=== PATIENT | female | born 1940 | race Caucasian/White ===

== ENCOUNTER → 2017-11-25 | Outpatient (CLI) | payer MEDICARE, OTHER ==
[~2017-11-25] MED LIST: ASPI-516 CHEW; CYAN1TAB24 PO; LEVO100T5 PO; NORC5TAB PO; TRAM50TA PO
[2017-11-25 13:02] LABS: AUTOMATED NEUTROPHIL # 3.5 TH/MM3 (1.8-7.7); BASOPHIL % 0.3 % (0.0-2.0); EOSINOPHIL # 0.9 TH/MM3 (0-0.4); EOSINOPHIL % 11.2 % (0.0-4.0); HEMATOCRIT 38.6 % (35.0-46.0); HEMOGLOBIN 13.1 GM/DL (11.6-15.3); LYMPH % 35.6 % (9.0-44.0); LYMPHOCYTE # 2.8 TH/MM3 (1.0-4.8); MEAN CELL VOLUME 95.2 FL (80.0-100.0); MEAN CORPUSCULAR HEMOGLOBIN 32.3 PG (27.0-34.0); MEAN CORPUSCULAR HGB CONC 33.9 % (32.0-36.0); MEAN PLATELET VOLUME 7.7 FL (7.0-11.0); MONO % 8.7 % (0.0-8.0); MONOCYTE # 0.7 TH/MM3 (0-0.9); NEUT % 44.2 % (16.0-70.0); PLATELET COUNT 327 TH/MM3 (150-450); RED BLOOD COUNT 4.05 MIL/MM3 (4.00-5.30)
[2017-11-25 13:03] LABS: BILIRUBIN, URINE NEG (NEG); BLOOD, URINE NEG (NEG); GLUCOSE,URINE NEG (NEG); KETONE, URINE NEG (NEG); MUCUS URINE FEW /lpf (OCC); NITRITE,URINE NEG (NEG); SQUAMOUS EPITHELIAL CELL URINE <1 /hpf (0-5); URINE COLOR YELLOW (YELLW/STRAW); URINE LEUKOCYTE ESTERASE TRACE (NEG)
[2017-11-25 13:14] LABS: ALBUMIN 3.7 GM/DL (3.4-5.0); AST (GOT) 20 U/L (15-37); BICARBONATE 30.7 MEQ/L (21.0-32.0); BLOOD UREA NITROGEN 11 MG/DL (7-18); CALCIUM 9.6 MG/DL (8.5-10.1); CHLORIDE 102 MEQ/L (98-107); CREATININE 0.66 MG/DL (0.50-1.00); GLOMERULAR FILTRATION RATE 87 ML/MIN (>89); GLUCOSE,FASTING 78 MG/DL (74-99); SODIUM (NA) 137 MEQ/L (136-145)
[2017-11-25 13:17] LABS: ALKALINE PHOSPHATASE 98 U/L (45-117); ALT (GPT) 10 U/L (10-53); TOTAL BILIRUBIN ADULT 0.4 MG/DL (0.2-1.0); TOTAL PROTEIN 7.1 GM/DL (6.4-8.2)
--- NOTE | 2017-11-25 13:17 | RADRPT ---
EXAM DATE/TIME: 11/25/2017 13:07 [facility] COMPARISON: SPINE LUMBAR LATERAL ONLY, June 17, 2015, 8:43. INDICATIONS : Evaluate for pneumonia, pneumothorax or communicable disease. Pre op lumbar laminectomy. MEDICAL HISTORY : None. SURGICAL HISTORY : None. ENCOUNTER: Initial ACUITY: 1 day PAIN SCORE: 0/10 LOCATION: Bilateral chest FINDINGS: The heart is normal in size. The mediastinal contours are within normal limits. There are chronic interstitial changes throughout the pulmonary parenchyma. There is a 5 mm calcified granuloma at the left lung base. The visualized osseous structures are grossly intact. Incidental note is made of severe scoliosis of the lumbar spine CONCLUSION: 1. 5 mm calcified granuloma the left lung base. 2. Chronic interstitial changes within the pulmonary parenchyma. 3. No acute cardiopulmonary findings identified. Garett Arita MD on November 25, 2017 at 13:14 Board Certified Radiologist. This report was verified electronically.
[2017-11-25 13:25] LABS: PROTHROMBIN TIME - PATIENT 10.1 SEC (9.8-11.6)
--- NOTE | 2017-11-25 16:32 | EKG ---
Date Performed: 11/25/2017 Time Performed: 12:46:37 PTAGE: 77 years EKG: SINUS BRADYCARDIA LOW QRS VOLTAGE IN PRECORDIAL LEADS BORDERLINE ECG PREVIOUS TRACING : 06/11/2015 12.03 Compared to previous tracing, interpolated PVC is no longer evident. DOCTOR: Fredis Muñoz Interpretating Date/Time 11/25/2017 16:30:44
== END ==
LOC: CPRE 11:59
PROVIDERS: ATTEND Neurological Surgery
DX: Z01.810 Encounter for preprocedural cardiovascular examination (principal); Z01.812 Encounter for preprocedural laboratory examination; Z01.818 Encounter for other preprocedural examination; M43.16 Spondylolisthesis, lumbar region; M51.16 Intervertebral disc disorders with radiculopathy, lumbar region; M51.36 Other intervertebral disc degeneration, lumbar region; R94.31 Abnormal electrocardiogram [ECG] [EKG]; Z79.01 Long term (current) use of anticoagulants
CPT/HCPCS: 36415; 71046; 80053; 81001; 85025; 85610; 85730; 87640; 87641; 93005

== ENCOUNTER → 2017-11-29 | Day surgery (SDC) | payer MEDICARE, OTHER ==
--- NOTE | 2017-11-28 15:43 | MH ---
cc: Jared Huerta DATE OF ADMISSION: 11/29/2017 ADMITTING DIAGNOSIS: Herniated nucleus pulposus, lumbar spine. HISTORY OF PRESENT ILLNESS: This is a 77-year-old female who presented to our office for an evaluation of left-sided low back pain extending to the left buttocks and left lateral thigh since January 2017 and it progressively getting worse. She denies any paresthesias in her lower extremities. She has seen Dr. Jones and has had injections in her spine since her MRI scan which was done in 04/2017. She has had physical therapy approximately 1-2 years ago which did not give her any lasting relief. She denies any weakness in the lower extremities. She denies any bowel or bladder incontinence. Walking exacerbates her pain and sitting improves it. She states that when she is sleeping, she sleeps on her sides and does okay, but if she sleeps on her back, this exacerbates her pain. She has hammertoes on her right foot and states that she has hypersensitivity on the bottom of her foot and has been informed that she has neuropathy. She relates that since her last surgery in 2014, which was a right L4-L5, L5-S1 foraminotomy, the right leg symptoms have resolved and now she has left buttock and left lateral thigh pain for the last 8 months. Tramadol is not controlling her pain. PAST MEDICAL HISTORY: Significant for: 1. Neuropathy. 2. Hypothyroidism. 3. Hip replacement, 2009. 4. L5-S1 lumbar fusion in 2008. 5. L4-L5 and L5-S1 foraminotomy, right side, 2014. 6. Tubal ligation in 1979. 7. Tonsillectomy in 1959. CURRENT MEDICATIONS: She is taking aspirin 81 mg; this was placed on hold prior to surgical intervention; levothyroxine 100 mcg p.o. daily, Erie 5 mg/325 mg p.o. q.6 hours p.r.n. pain. ALLERGIES: SHE HAS NO KNOWN DRUG ALLERGIES. FAMILY HISTORY: Her mother is in her 70s of cancer. His father is when he was 25 from a car accident. Her brother is alive. She has another brother who is at 61 of cancer and another brother who is alive at 76. SOCIAL HISTORY: She is retired. She has 4 children; 3 are living, 1 is . She lives with her . She does not smoke. She drinks alcohol, but not often. REVIEW OF SYSTEMS: CONSTITUTIONAL: She denies any fever or chills. EARS, NOSE, AND THROAT: No pharyngitis, exudates, or bloody drainage from her nose. CARDIOVASCULAR: She denies any chest pain or palpitations. RESPIRATORY: No cough or shortness of breath. GENITOURINARY: No dysuria or urinary frequency. MUSCULOSKELETAL: Positive for low back pain. NEUROLOGIC: No difficulty with speech or memory. GASTROINTESTINAL: No nausea, vomiting, or abdominal pain. PSYCHIATRIC: No anxiety or depression symptoms. ENDOCRINE: No polyuria or polydipsia. HEMATOLOGIC: No bruising or bleeding tendencies. PHYSICAL EXAMINATION: HEAD: Normocephalic, atraumatic. NECK: Supple. No carotid bruits heard on auscultation. LUNGS: Clear to auscultation bilaterally. HEART: Regular rate and rhythm. Normal S1, S2. ABDOMEN: Soft, nontender. Positive bowel sounds. SKIN: Reveals no cyanosis or erythema. MUSCULOSKELETAL: She has 5/5 strength in the lower extremities. She ambulates with a somewhat kyphotic posture without any assistive device. NEUROLOGIC: She is awake, alert and oriented. Cranial nerves 2-12 are grossly intact. Her speech is fluent. Comprehension is good. She follows commands well. Reflexes are 2+ in the lower extremities. Sensation is intact to light touch in the lower extremities. IMPRESSION: A 77-year-old female with complaints of left paraspinal back and buttock pain with radiation to the lateral thigh for the past 8-10 months which has progressively gotten worse and limiting her activity status. She has undergone physical therapy in the past, which has not helped, and also recently epidural steroid injections, which helped for a couple of weeks and then her symptoms returned. She has been using tramadol for her pain and this was switched recently to Erie. MRI of the lumbar spine from 05/02/2017 reveals a previous right L5-S1 transforaminal decompression with interbody fusion and foraminal decompressed. She does have a disk protrusion on the left side at L2-L3 with lateral recess and foraminal stenosis along with facet hypertrophy as well as L3-L4 right facet hypertrophy with significant foraminal stenosis bilaterally. PLAN: We have discussed treatment options with the patient and she is requesting that we proceed with surgical intervention, stating that she is currently miserable due to her level of discomfort. Dr. Kay has recommended a left L2-L3 and L3-L4 microdiskectomy with foraminotomy. We also discussed continuing conservative treatment measures with physical therapy and pain management, but she states again that she wants to proceed with surgical intervention. This surgery as well as the risks, benefits, alternatives, and recovery time were explained in great detail with the patient. We have discussed the risks involved with surgery including, but not limited to bleeding, infection, muscle weakness, voice hoarseness, difficulty swallowing, heart attack, stroke, blood clots, scar tissue formation among others. The patient states that she understands the risks of the surgery and she is requesting that we proceed and she was therefore scheduled accordingly. MARIA EUGENIA Brand MD ROGELIO/TI , 01:34 PM , 02:29 PM
[~2017-11-29] VITALS: Ht 152.4 cm; Wt 63.0 kg
[~2017-11-29] MED LIST changes: +ACETAMINOPHEN 1000 MG/100 ML 100 ML IV ONE; +ACETAMINOPHEN/HYDROcodone 325 MG/10 MG TAB PO PRN; +BUPIVACAINE/EPINEPHRINE 0.5% PF 30 ML VIAL ONE; +CHLORHEXIDINE GLUCONATE 2 % 1 PACK (2 CLOTHS) TOPICAL PRN; +CHLORHEXIDINE GLUCONATE 2 % 1 PACK (2 CLOTHS) TOPICAL SCH; +DEXAMETHASONE SOD PHOS 4 MG/ML VIAL IV ONE; +DO NOT ADM ANY ANTICOAGULANT DRUGS PRN; +GELFOAM SIZE 100 ONE; +GLYCOPYRROLATE 1 MG/5 ML SYRINGE IV PUSH ONE; +LACTATED RINGER'S 1000 ML INJ 2,000 ML IV ONE; +LACTATED RINGER'S 1000 ML IV PRN; +LIDOCAINE HCL 1% PF 5 ML SYRINGE OTHER ONE; +METOPROLOL TARTRATE 25 MG TAB PO PRN; +MIDAZOLAM HCL 2 MG/2 ML VIAL ONE; +MORPHINE SULFATE 4 MG/ML INJ IV PUSH PRN; +NEOSTIGMINE 5 MG/5 ML SYRINGE IV PUSH ONE; +ONDANSETRON HCL 4 MG/2 ML VIAL IV ONE; +POVIDONE IODINE 5% (ANTISEPSIS KIT) 4 APPLICATIONS EACH NARE PRN; +PROPOFOL 200 MG/20 ML AMP IV ONE; +ROCURONIUM INJ 50 MG/5 ML SYRINGE IV PUSH ONE; +SODIUM CHLOR 0.9% 1000 ML INJ 1,000 ML IV SCH; +SODIUM CHLORID 0.9% 500 ML IV PRN; +THROMBIN (TOPICAL) 5,000 UNIT VIAL ONE; -TRAM50TA PO; +VANCOMYCIN 1,000 MG/NS 250 ML IV SCH; +VANCOMYCIN HCL 1000 MG VIAL ONE; +ePHEDrine/NS 25 MG/5 ML SYRINGE IV ONE; +methylPREDNISolone ACETATE 40 MG/ML VIAL ONE
--- NOTE | 2017-11-29 11:13 | PD.OP ---
Rayne Becker, Operative Report Date of Surgery: Nov 29, 2017 Preoperative Diagnosis: Low back pain with intractable left polyradiculopathy; lumbar L2-3 disc herniation with facet hypertrophy and associated spinal and foraminal stenosis; L3-4 facet hypertrophy with left foraminal stenosis Postoperative Diagnosis: Same Procedure: Lumbar left L2-3 and L3-4 hemilaminotomy with medial facetectomy and foraminotomy; left L2-3 microdiscectomy; microsurgical technique Anesthesia: Gen. endotracheal by Fiorella white Surgeon: Brayan Kay M.D. Lines Tender(s): Mone Palacios Operation and Findings: Following administration of general endotracheal anesthesia, patient received vancomycin 1 g intravenously. Sequential compression devices were placed for DVT prophylaxis and a Ryder catheter. Se was then turned in prone position on Jermain frame and the Bobby table and all pressure points adequately padded. The lumbar region was then shaved and prepped with a Betadine and ChloraPrep. Sterile draping undertaken with Ioban. Midline incision overlying the L2-L4 levels was then made after infiltrating the skin with 0.5% Marcaine with epinephrine solution. The skin incision was made extending down through the fascia and then using the subperiosteal plane on the left side the muscular attachments to the spinous process and lamina were detached. Intraoperative fluoroscopy was used for level confirmation and further dissection undertaken using microtechnique with microscope magnification. The inferior portion of the left L2, left L3 and superior portion of the left L4 lamina was then drilled out and the underlying ligamentum flavum also removed. There was facet arthropathy noted in the medial portion of facet was also resected and the lateral recess decompressed until the exiting nerve roots at both levels were free. Epidural venous stasis which he with the bipolar cautery along with Gelfoam and thrombin and bone wax used at the laminotomy edges for hemostasis. The thecal sac was then gently retracted with a nerve root retractor and an extruded disc fragment was identified at the L2-3 level. Fragments were removed with pituitary forceps and the nerve root impingement along with thecal sac compression decompressed. The area was then copiously irrigated with vancomycin solution. Depo-Medrol 40 mg was injected in the epidural space. The retractors removed and the muscle fascia proximal using 2-0 Vicryl interrupted stitches. 3-0 Vicryl subcuticular stitches were also placed in an interrupted fashion and planned skin closure was with Mastisol and Steri-Strips. A sterile dressing was then applied and the patient then turned in the supine position and extubated and taken to recovery room in stable condition. There were no intraoperative complications and all sponge and needle count was correct at the end of the procedure. Estimated blood loss about 25 cc. Brayan Kay MD Nov 29, 2017 11:13
--- NOTE | 2017-11-29 11:31 | RADRPT ---
EXAM DATE/TIME: 11/29/2017 08:44 [facility] COMPARISON: SPINE LUMBAR LATERAL ONLY, June 17, 2015, 8:43. INDICATIONS : L2-L3, L3-L4 microdiskectomy, terri-laminotomy. Level localization. MEDICAL HISTORY : None. SURGICAL HISTORY : Fusion, lumbar. Right total hip arthroplasty. ENCOUNTER: Initial ACUITY: 1 day PAIN SCORE: Non-responsive. LOCATION: Lumbar spine. CONCLUSION: Lateral fluoroscopic images demonstrates fusion at L5-S1. Temporary probe seen posteriorly at the lev el of L3-L4 disc space. Jared Sweeney MD on November 29, 2017 at 11:29 Board Certified Radiologist. This report was verified electronically.
[2017-11-29 12:35] VITALS: BP 105/58; PULSE 59; RESP 16; TEMP 97.6; O2SAT 99
== END | disposition home or self-care (01) ==
LOC: HSDC 05:54
PROVIDERS: ATTEND Neurological Surgery
DX: M51.16 Intervertebral disc disorders with radiculopathy, lumbar region (principal); M48.061 Spinal stenosis, lumbar region without neurogenic claudication; E03.9 Hypothyroidism, unspecified; G62.9 Polyneuropathy, unspecified; Z98.1 Arthrodesis status
CPT/HCPCS: 00630; 63030; 63035; 72020; 76000; J0131; J1030; J1100; J2250; J2405; J2710; J3010; J3370; J7120